=== PATIENT | female | born 1975 | race Hispanic/Latino ===

== ENCOUNTER 2016-09-19 19:10 | Emergency (ER) | payer BC ==
[2016-09-19 19:21] VITALS: BP 148/83; PULSE 91; RESP 16; TEMP 98.1; O2SAT 99
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
--- NOTE | 2016-09-20 08:16 | CT ---
PROCEDURE: CT HEAD WITHOUT CONTRAST. HISTORY: head injury, memory loss COMPARISON: None available. TECHNIQUE: Axial computed tomography images were obtained through the head/brain without intravenous contrast. Radiation dose: Total exam DLP = 782.13 mGy-cm. This CT exam was performed using one or more of the following dose reduction techniques: Automated exposure control, adjustment of the mA and/or kV according to patient size, and/or use of iterative reconstruction technique. FINDINGS: HEMORRHAGE: No intracranial hemorrhage. BRAIN: No mass effect or edema. No atrophy or chronic microvascular ischemic changes. VENTRICLES: Unremarkable. No hydrocephalus. CALVARIUM: Unremarkable. PARANASAL SINUSES: Unremarkable as visualized. No significant inflammatory changes. MASTOID AIR CELLS: Unremarkable as visualized. No inflammatory changes. OTHER FINDINGS: None. IMPRESSION: No evidence of acute intracranial hemorrhage intracranial collection mass effect or midline shift. No evidence of skull fracture. Preliminary report was submitted by [facility].
== END 2016-09-20 01:41 | disposition home or self-care (01) ==
LOC: H.ER 19:10
DX: S09.90XA Unspecified injury of head, initial encounter (principal); W19.XXXA Unspecified fall, initial encounter; Y92.410 Unspecified street and highway as the place of occurrence of the external cause; Y93.55 Activity, bike riding; R42 Dizziness and giddiness; R41.3 Other amnesia